=== PATIENT | female | born 1960 | race Caucasian/White ===

== ENCOUNTER 2018-08-22 15:38 | Emergency (ER) | payer OTHER ==
--- NOTE | 2018-08-22 16:26 | ED Physician Documentation ---
General Adult - HISTORIAN Historian: patient - HPI Stated Complaint: medical screening Chief Complaint: General Adult (Fall) Additional Information: Patient is a 57-year-old female who presents to the ER from [facility] s/p fall. Patient states that she went to check in at [facility] and fell in the parking lot and has several abrasions to her face. She denies any LOC- she remembers the event. She states that she snorted 5 klonopin today- she has a history of Morphine use and marijuana. She states that she had 2 travel size bottles of liquor this morning but that is all. She is alert and oriented- ambulated to the bathroom independently. Onset: hours Timing: still present Severity: mild Modifying Factors: Fall, alcohol use, snorting klonopin Further Comments: no - ROS CONST: recent illness (was sober for 5 years and started drinking again) EYES/ENT: none CVS/RESP: none GI/: none MS/SKIN/LYMPH: none NEURO/PSYCH: anxiety, depression. denies: headache - PAST HX Past History: other (depression, anxiety, bipolar) Surgeries/Procedures: none Immunizations: UTD Allergies/Adverse Reactions: Allergies Allergy/AdvReac Type Severity Reaction Status Date / Time codeine Allergy Verified 08/22/18 16:23 penicillin G Allergy Verified 08/22/18 16:23 methadone AdvReac Vomiting Verified 08/22/18 16:23 Home Medications: Ambulatory Orders Medication Instructions Recorded Celecoxib 200 mg PO DAILY 08/22/18 DULoxetine HCL [Cymbalta] 30 mg PO DAILY 08/22/18 Escitalopram Oxalate [Lexapro] 10 mg PO DAILY 08/22/18 Topiramate [Topamax] 200 mg PO DAILY 08/22/18 Trazodone HCl 50 mg PO HS PRN 08/22/18 - SOCIAL HX Smoking History: less than 1 pack/day Alcohol Use: heavy Drug Use: marijuana, other (Klonopin) - FAMILY HX Family History: Yes - VITAL SIGNS Vital Signs: Vital Signs Temp Pulse Resp BP Pulse Ox 98.6 F 79 16 100/55 95 08/22/18 15:38 08/22/18 15:38 08/22/18 15:38 08/22/18 15:38 08/22/18 15:38 Progress - Progress Progress: Patient will be discharged back to [facility] per patient request General Adult Physical Exam - PHYSICAL EXAM GENERAL APPEARANCE: no distress EENT: eye inspection normal, ENT inspection normal, pharynx normal NECK: normal inspection, supple RESPIRATORY: chest non-tender, breath sounds normal CVS: reg rate & rhythm, heart sounds normal, equal pulses ABDOMEN: soft, normal bowel sounds SKIN: warm/dry, normal color, other (abrasions to the right forehead with bruising/swelling- abrasion to the left side of face) EXTREMITIES: non-tender, normal range of motion NEURO: oriented X3, motor nml, sensation nml Discharge Clincal Impression: Fall, Facial abrasion Referrals: Primary Doctor,No [Primary Care Provider] - 2 Days Additional Instructions: Keep abrasions clean and dry- apply antibiotic ointment Continue with rehab through [facility] Return to the ER as needed Comments: Called and spoke with Shanda BRIGHT at [facility]- they were just making sure that patient had no drugs in her system. Condition: Good Disposition: 01 HOME, SELF-CARE Decision to Admit: NO Decision Time: 16:33
[2018-08-22] MEDS: DIPH,PERTUSS(ACELL),TET VAC/PF 0.5 ML DISP.SYRIN IM ONE (16:43)
[2018-08-22 16:46] VITALS: BP 99/69
[2018-08-22 22:54] LABS: CANNABINOIDS NEGATIVE ng/mL (< 50); METHYLENEDIOXYMETHAMPHETAMINE NEGATIVE ng/mL (<500)
== END 2018-08-22 16:50 | disposition home or self-care (01) ==
LOC: ED 15:38
DX: S00.81XA Abrasion of other part of head, initial encounter (principal); W01.0XXA Fall on same level from slipping, tripping and stumbling without subsequent striking against object, initial encounter; Y93.01 Activity, walking, marching and hiking; Y92.481 Parking lot as the place of occurrence of the external cause
CPT/HCPCS: 80377; 90471; 90715; 99282; 99283; G0481